=== PATIENT | female | born 1980 | race African-American/Black ===

== ENCOUNTER 2018-10-14 08:28 | Outpatient (CLI) | payer OTHER ==
[2018-10-14] MEDS ORDERED: NORMAL SALINE 250 ML IV PRN (08:47)
[2018-10-14] MEDS ORDERED: IRON DEXTRAN COMPLEX IV PRN (08:49)
[2018-10-14] MEDS ORDERED: NORMAL SALINE IV PRN (08:49)
[2018-10-14 09:51] VITALS: BP 131/79
== END 2018-10-14 11:24 | disposition home or self-care (01) ==
LOC: II 08:28 → 5TH 08:32 → II 11:24
PROVIDERS: ATTEND Internal Medicine
DX: D50.0 Iron deficiency anemia secondary to blood loss (chronic) (principal); K90.9 Intestinal malabsorption, unspecified
CPT/HCPCS: 96365; 96366; J1750; J7040

== ENCOUNTER 2018-10-21 09:44 | Outpatient (CLI) | payer OTHER ==
[~2018-10-21 09:44] MED LIST: IRON DEXTRAN COMPLEX IV PRN; NORMAL SALINE 250 ML IV PRN; NORMAL SALINE IV PRN
[2018-10-21 10:18] VITALS: BP 126/62
== END 2018-10-21 12:03 | disposition home or self-care (01) ==
LOC: II 09:44 → 5TH 09:50 → II 12:03
PROVIDERS: ATTEND Internal Medicine
PROC: 3E033GC Introduction of Other Therapeutic Substance into Peripheral Vein, Percutaneous Approach (ICD-10-PCS; principal; 2018-10-21)
DX: D50.0 Iron deficiency anemia secondary to blood loss (chronic) (principal); K90.9 Intestinal malabsorption, unspecified
CPT/HCPCS: 96367; J1750; J7050; 96365; 96366

== ENCOUNTER 2018-10-28 08:42 | Outpatient (CLI) | payer OTHER ==
[2018-10-28] MEDS ORDERED: NORMAL SALINE 250 ML IV PRN (08:52)
[2018-10-28] MEDS ORDERED: IRON DEXTRAN COMPLEX IV PRN (08:57)
[2018-10-28] MEDS ORDERED: NORMAL SALINE IV PRN (08:57)
[2018-10-28 09:05] VITALS: BP 129/72
== END 2018-10-28 11:15 | disposition home or self-care (01) ==
LOC: II 08:42 → 5TH 09:00 → II 11:15
PROVIDERS: ATTEND Internal Medicine
PROC: 3E033GC Introduction of Other Therapeutic Substance into Peripheral Vein, Percutaneous Approach (ICD-10-PCS; principal; 2018-10-28)
DX: D50.0 Iron deficiency anemia secondary to blood loss (chronic) (principal); K90.9 Intestinal malabsorption, unspecified
CPT/HCPCS: 96365; 96366; J1750; J7050

== ENCOUNTER 2019-03-09 09:11 | Outpatient (CLI) | payer OTHER ==
[~2019-03-09 09:11] MED LIST changes: +FERUMOXYTOL (NON-ESRD) 510 MG/NS 100 ML IV PRN; -IRON DEXTRAN COMPLEX IV PRN; -NORMAL SALINE IV PRN
[2019-03-09 11:20] VITALS: BP 114/60
== END 2019-03-09 11:21 | disposition home or self-care (01) ==
LOC: II 09:11 → 5TH 09:40 → II 11:21
PROVIDERS: ATTEND Internal Medicine
PROC: 3E033GC Introduction of Other Therapeutic Substance into Peripheral Vein, Percutaneous Approach (ICD-10-PCS; principal; 2019-03-09)
DX: D50.9 Iron deficiency anemia, unspecified (principal); K90.9 Intestinal malabsorption, unspecified
CPT/HCPCS: 96365; Q0138; J7050

== ENCOUNTER 2019-03-23 12:27 | Outpatient (CLI) | payer OTHER ==
[2019-03-23 12:46] VITALS: BP 112/61
== END 2019-03-23 13:48 | disposition home or self-care (01) ==
LOC: II 12:27 → 5TH 12:34 → II 13:48
PROVIDERS: ATTEND Internal Medicine
PROC: 3E033GC Introduction of Other Therapeutic Substance into Peripheral Vein, Percutaneous Approach (ICD-10-PCS; principal; 2019-03-23)
DX: D50.9 Iron deficiency anemia, unspecified (principal); K90.9 Intestinal malabsorption, unspecified
CPT/HCPCS: 96365; Q0138; J7050

== ENCOUNTER 2019-07-06 13:41 | Outpatient (CLI) | payer OTHER ==
[2019-07-06 14:09] VITALS: BP 138/74
== END 2019-07-06 14:42 | disposition home or self-care (01) ==
LOC: II 13:41 → 5TH 13:52 → II 14:42
PROVIDERS: ATTEND Internal Medicine
DX: D50.9 Iron deficiency anemia, unspecified (principal); K90.9 Intestinal malabsorption, unspecified
CPT/HCPCS: 96365; Q0138; J7050

== ENCOUNTER 2019-07-13 13:45 | Outpatient (CLI) | payer OTHER ==
[2019-07-13 14:16] VITALS: BP 115/66
== END 2019-07-13 15:32 | disposition home or self-care (01) ==
LOC: II 13:45 → 5TH 14:02 → II 15:32
PROVIDERS: ATTEND Internal Medicine
DX: D50.9 Iron deficiency anemia, unspecified (principal); K90.9 Intestinal malabsorption, unspecified
CPT/HCPCS: 96365; Q0138; J7050

== ENCOUNTER 2019-09-01 09:57 | Outpatient (CLI) | payer OTHER ==
[2019-09-01 10:51] VITALS: BP 119/70
== END 2019-09-01 10:55 | disposition home or self-care (01) ==
LOC: II 09:57 → 5TH 10:50 → II 10:55
PROVIDERS: ATTEND Internal Medicine
DX: D50.9 Iron deficiency anemia, unspecified (principal); K90.9 Intestinal malabsorption, unspecified
CPT/HCPCS: 96365; Q0138; J7050

== ENCOUNTER 2020-02-01 13:19 | Emergency (ER) | payer OTHER, MEDICAID ==
--- NOTE | 2020-02-01 15:03 | ER Document Report ---
ED Medical Screen (RME) - General Chief Complaint: Vaginal Bleeding Stated Complaint: VAGINAL BLEEDING Time Seen by Provider: 02/01/20 14:47 Mode of Arrival: Ambulatory Information source: Patient Notes: Patient is a 39-year-old female comes emergency room with a extended history of anemia. Patient states that back on January 09 she started her last menstrual period that she knows about. Was normal in appearance lasted a few days and went away then she started having spotting for a couple of days and then heavy bleeding again. Since that point time patient has had heavy menstrual bleeding. She states she is going through a bag of the thick pads every 2 days. She also states that she has contacted her [employer]DER which is Dr. Roberto and she is also working with Dr. Kiser because of a history of anemia. Patient states that she has a GI specialist as well as other specialist down to [place] were trying to figure out her anemia but she has never had bleeding vaginally like this be fore. When she originally saw Dr. Roberto he placed her on medroxyprogesterone 10 mg daily. Patient states she took it for several days did not seem to be working and her periods seem to get heavier. She recontacted them and was told to increase it to 30 mg a day. Patient states that she was not wanting to increase that much but she did anyway and it has slowed it down but she is still having several pads a day. She is recently saw Dr. Kiser and had blood work done and she informs me she went from an 11 on her hemoglobin to 9. Patient also states that she has been told she has also been diagnosed von Willebrand's blood disorder. Patient is a well-nourished well-developed 3-year-old female no apparent distress on examination today. Cardiac: Regular rate and rhythm no murmurs auscultated. Lungs: Bilateral breath sounds breath sounds decreased throughout no rhonchi rales or wheeze heard. Abdomen: Bowel sounds present all 4 quads nontender to palpation. Palpation of the suprapubic area does show some mild tenderness. I have greeted and performed a rapid initial assessment of this patient. A comprehensive ED assessment and evaluation of the patient, analysis of test results and completion of the medical decision making process will be conducted by additional ED providers. Dictation of this chart was performed using voice recognition software; therefore, there may be some unintended grammatical errors. TRAVEL OUTSIDE OF THE [place] IN LAST 30 DAYS: No - Related Data Allergies/Adverse Reactions: morphine Allergy (Unknown, Verified 11/17/13 15:21) Past Medical History - Social History Chew tobacco use (# tins/day): No Frequency of alcohol use: None Drug Abuse: None Psychiatric Medical History: Denies: Hx Depression Physical Exam - Vital signs Vitals: Temp 98.1 F 02/01/20 13:19 Course - Vital Signs Vital signs: Temp Pulse Resp BP Pulse Ox 98.1 F 95 20 136/72 H 100 02/01/20 13:49 02/01/20 13:49 02/01/20 13:49 02/01/20 13:49 02/01/20 13:49
[2020-02-01 15:36] LABS: ABSOLUTE EOSINOPHILS # (AUTO) 0.1 10^3/uL (0.0-0.6); ABSOLUTE LYMPHOCYTES (AUTO) 1.5 10^3/uL (0.5-4.7); ABSOLUTE MONOCYTES (AUTO) 0.5 10^3/uL (0.1-1.4); ABSOLUTE NEUT (AUTO) 2.4 10^3/uL (1.7-8.2); BASOPHILS % (AUTO) 0.5 % (0-2); EOSINOPHILS % (AUTO) 1.6 % (0-6); HEMATOCRIT 29.5 % (36.0-47.0); HEMOGLOBIN 9.4 g/dL (12.0-15.5); LYMPHOCYTES % (AUTO) 33.1 % (13-45); MEAN CORPUSCULAR HEMOGLOBIN 25.8 pg (27.0-33.4); MEAN CORPUSCULAR VOLUME 81 fl (80-97); MONOCYTES % (AUTO) 10.5 % (3-13); PLATELET COUNT 341 10^3/uL (150-450); RED BLOOD COUNT 3.66 10^6/uL (3.72-5.28); SEGMENTED NEUTROPHILS % (AUTO) 54.3 % (42-78); TOTAL CELLS COUNTED % (AUTO) 100 %; WHITE BLOOD COUNT 4.5 10^3/uL (4.0-10.5)
[2020-02-01 15:59] LABS: BILIRUBIN,URINE NEGATIVE (NEGATIVE); GLUCOSE, URINE NEGATIVE (NEGATIVE); KETONES,URINE NEGATIVE (NEGATIVE); LEUKOCYTE ESTERASE,URINE NEGATIVE (NEGATIVE); NITRITE,URINE NEGATIVE (NEGATIVE); PROTEIN,URINE 100 mg/dL (NEGATIVE)
[2020-02-01 16:01] LABS: APPEARANCE,URINE TURBID; COLOR,URINE RED
[2020-02-01 16:05] LABS: ALBUMIN 4.1 g/dL (3.5-5.0); ALKALINE PHOSPHATASE 68 U/L (38-126); ANION GAP 9 (5-19); ASPARTATE AMINO TRANSFERASE 19 U/L (14-36); BILIRUBIN,TOTAL 0.2 mg/dL (0.2-1.3); BLOOD UREA NITROGEN 12 mg/dL (7-20); CALCIUM 9.3 mg/dL (8.4-10.2); CARBON DIOXIDE 27 mmol/L (22-30); CHLORIDE 105 mmol/L (98-107); GLUCOSE 123 mg/dL (75-110); POTASSIUM 4.9 mmol/L (3.6-5.0); TOTAL PROTEIN 7.5 g/dL (6.3-8.2)
[2020-02-01 16:11] LABS: INTERNATIONAL RATION (INR) 0.88; PROTHROMBIN TIME 12.2 SEC (11.4-15.4)
[2020-02-01 16:19] LABS: PARTIAL THROMBOPLASTIN TIME 25.2 SEC (23.5-35.8)
--- NOTE | 2020-02-01 17:03 | RADIOLOGY REPORT (SQ) ---
EXAM DESCRIPTION: U/S NON OB PEL TV W/DOPPLER IMAGES COMPLETED DATE/TIME: 02/01/2020 4:30 pm REASON FOR STUDY: pelvic pain COMPARISON: None. TECHNIQUE: Dynamic and static grayscale images acquired of the pelvis via transvaginal approach and recorded on PACS. Additional selected color Doppler and spectral images recorded. LIMITATIONS: None. FINDINGS: UTERUS: Enlarged demonstrating coarsened echotexture. There appears to be a 2.5 x 2.3 x 2 .0 cm subserosal versus intramural fibroid involving the anterior lower uterine segment. No submucos al fibroids are demonstrated. ENDOMETRIAL STRIPE: No focal or generalized thickening. No masses. CERVIX: No nabothian cysts. RIGHT OVARY AND DOPPLER: Ovary not visualized. LEFT OVARY AND DOPPLER: Ovary not visualized. FREE FLUID: None noted. OTHER: No other significant finding. MEASUREMENTS: UTERUS: 12.2 x 6.8 x 8.1 cm ENDOMETRIAL STRIPE: 1.0 cm RIGHT OVARY: Not visualized. LEFT OVARY: Not visualized. IMPRESSION: 2.5 x 2.3 x 2.0 cm anterior uterine body fibroid which does not approximate the endometr ial echo complex. Enlarged, heterogeneous appearing uterus may represent an element of adenomyosis. The ovaries are not visualized on today's examination. TECHNICAL DOCUMENTATION: JOB ID: [id number] 2010 [employer]- All Rights Reserved Reading location - IP/workstation name: [email or web address]
--- NOTE | 2020-02-01 19:03 | ER Document Report ---
ED General - General Chief Complaint: Vaginal Bleeding Stated Complaint: VAGINAL BLEEDING Time Seen by Provider: 02/01/20 14:47 Mode of Arrival: Ambulatory Information source: Patient Notes: Patient is a 39-year-old female presenting to the emergency department chief complaint of dysfunctional uterine bleeding. Patient states her last normal period began on 09 January and has continued until present. Patient states that she is under the care of several physicians in regards to this bleeding and frequent anemia. Patient states that she has had a prior history of von Willebrand's disease. Patient denies travel history trauma history sick contacts bad food exposure. TRAVEL OUTSIDE OF THE [place] IN LAST 30 DAYS: No - HPI Onset: Other - January 09 Onset/Duration: Persistent Quality of pain: Achy Severity: Mild Pain Level: 1 Associated symptoms: None Exacerbated by: Denies Relieved by: Denies Similar symptoms previously: Yes Recently seen / treated by doctor: Yes - Related Data Allergies/Adverse Reactions: morphine Allergy (Unknown, Verified 11/17/13 15:21) Past Medical History - General Information source: Patient - Social History Smoking Status: Unknown if Ever Smoked Chew tobacco use (# tins/day): No Frequency of alcohol use: None Drug Abuse: None Lives with: Family Family History: Reviewed & Not Pertinent Patient has suicidal ideation: No Patient has homicidal ideation: No Renal/ Medical History: Reports: Other - Dysfunctional uterine bleeding Psychiatric Medical History: Denies: Hx Depression - Immunizations Hx Pneumococcal Vaccination: 06/14/13 Review of Systems - Review of Systems Notes: REVIEW OF SYSTEMS: CONSTITUTIONAL : Denies fever, chills, or sweats. Denies recent illness. EENT: Denies eye, ear, throat, or mouth pain or symptoms. Denies nasal or sinus congestion. CARDIOVASCULAR: Denies chest pain. RESPIRATORY: Denies cough, cold, or chest congestion. Denies shortness of breath, difficulty breathing, or wheezing. GASTROINTESTINAL: Denies abdominal pain. Denies nausea, vomiting, or diarrhea. Denies constipation. GENITOURINARY: Per HPI MUSCULOSKELETAL: Denies neck or back pain or joint pain or swelling. SKIN: Denies rash or skin lesions. HEMATOLOGIC : Denies easy bruising or bleeding. NEUROLOGICAL: Denies altered mental status or loss of consciousness. Denies headache. Denies weakness or paralysis or loss of use of either side. Denies problems with gait or speech. Denies sensory or motor loss. PSYCHIATRIC: Denies suicidal or homicidal ideations 10 Systems are negative unless otherwise specified above Constitutional: No symptoms reported EENT: No symptoms reported Cardiovascular: No symptoms reported Respiratory: No symptoms reported Gastrointestinal: No symptoms reported Genitourinary: No symptoms reported Female Genitourinary: No symptoms reported Musculoskeletal: No symptoms reported Skin: No symptoms reported Hematologic/Lymphatic: No symptoms reported Neurological/Psychological: No symptoms reported Physical Exam - Vital signs Vitals: Temp 98.1 F 02/01/20 13:19 - Notes Notes: PHYSICAL EXAMINATION: GENERAL: Well-appearing, well-nourished and in no acute distress. HEAD: Atraumatic, normocephalic. EYES: Pupils equal round and reactive to light, extraocular movements intact, sclera anicteric, conjunctiva are normal. ENT: nares patent, oropharynx clear without exudates. Moist mucous membranes. NECK: Normal range of motion, supple without lymphadenopathy, no appreciable JVD LUNGS: Lungs clear to auscultation bilaterally and equal. No wheezes rales or rhonchi. HEART: Regular rate and rhythm without murmurs ABDOMEN: Soft, nontender, normal bowel sounds. No guarding, no rebound. No masses appreciated. EXTREMITIES: Active full range of motion, no pitting or edema. No cyanosis. 2+ pulses x4 NEUROLOGICAL: No focal neurological deficits. Moves all extremities spontaneously and on command. SKIN: Warm, Dry, and intact. Normal turgor, no rashes or lesions noted. Course - Re-evaluation Re-evalutation: 02/01/20 19:04 I have reviewed the patient's laboratory and radiologic results I spoke with Dr. Martins MED SURG RN on-call who requests that the patient follow-up with his office tomorrow. Patient is currently taking medroxyprogesterone as scheduled. Patient is agreeable with follow-up in the morning and stable at time of dischar ge. - Vital Signs Vital signs: Temp Pulse Resp BP Pulse Ox 98.2 F 76 18 132/76 H 98 02/01/20 18:35 02/01/20 18:35 02/01/20 18:35 02/01/20 18:35 02/01/20 18:35 - Laboratory Result Diagrams: 02/01/20 15:05 02/01/20 15:05 Laboratory results interpreted by me: 02/01/20 02/01/20 02/01/20 15:05 15:05 15:05 RBC 3.66 L Hgb 9.4 L Hct 29.5 L MCH 25.8 L RDW 16.0 H Glucose 123 H Urine Protein 100 H Urine Blood LARGE H Urine Urobilinogen 2.0 H - Diagnostic Test Radiology reviewed: Reports reviewed Discharge - Discharge Clinical Impression: Dysfunctional uterine bleeding Anemia Qualifiers: Anemia type: iron deficiency Iron deficiency anemia type: chronic blood loss Qualified Code(s): D50.0 - Iron deficiency anemia secondary to blood loss (chronic) Uterine fibroid Qualifiers: Uterine leiomyoma location: unspecified location Qualified Code(s): D25.9 - Leiomyoma of uterus, unspecified Condition: Stable Disposition: HOME, SELF-CARE Additional Instructions: Dysfunctional Uterine Bleeding You're having an abnormal pattern of bleeding from the uterus. We call this dysfunctional uterine bleeding. It is most often caused by a hormone imbalance. Most often this is temporary and no cause is found. There's no evidence of , tumors, or infection as a cause. Dysfunctional uterine bleeding is especially common at times when the no rmal menstrual cycle is disturbed -- whether by recent , use of control pills or hormones, or impending menopause. Some medical problems lead to dysfunctional bleeding, such as obesity or being very underweight, stress, or thyroid problems. In many cases, the menstrual cycle will return to normal without any treatment. Where the bleeding is significant, high-dose estrogen will usually stop the bleeding within a day of two. A cycle or two of hormones ( control pills) can help restore the uterus to normal. In some patients where bleeding is severe or resistant to treatment, a D&C is required. A endometrial biopsy (a sample of the inside of the uterus) may be cam mmended for some older women. This would be done by a gynecology specialist. Treatment for anemia may be required if bleeding is severe. You should rest and avoid intercourse until the bleeding is controlled. Call the doctor or return for re-examination if you feel faint, have increasing pain, or have a major increase in the amount of bleeding. Fibroids Fibroids are benign growths in the uterus. They can cause enlargement of the uterus, irregular bleeding, sever bleeding with periods, and abdominal pain. Anemia may result if periods are heavy. Fibroids tend to grow until menopause, then slowly shrink. If fibroids cause severe symptoms, they can be treated surgically. Call or return if vaginal bleeding or pain becomes severe. Call Dr. Martins's office tomorrow morning for an appointment per his recommendation. Referrals: CAR MARTINS MD [ACTIVE STAFF] - Follow up as needed
[2020-02-01 19:13] VITALS: BP 131/78
== END 2020-02-01 19:12 | disposition home or self-care (01) ==
LOC: ER 13:19
DX: N93.8 Other specified abnormal uterine and vaginal bleeding (principal); D50.0 Iron deficiency anemia secondary to blood loss (chronic); D25.9 Leiomyoma of uterus, unspecified; D68.0 Von Willebrand disease; Z88.8 Allergy status to other drugs, medicaments and biological substances
CPT/HCPCS: 36415; 76830; 80053; 81001; 84702; 85025; 85610; 85730; 93976; 99284

== ENCOUNTER 2020-02-07 08:11 | Outpatient (CLI) | payer OTHER, MEDICAID ==
[2020-02-07] MEDS ORDERED: FERUMOXYTOL (NON-ESRD) 510 MG/NS 100 ML IV PRN ×2 (08:18)
[2020-02-07] MEDS ORDERED: NORMAL SALINE 250 ML IV PRN (08:19)
[2020-02-07 08:30] VITALS: BP 121/66
== END 2020-02-07 09:15 | disposition home or self-care (01) ==
LOC: II 08:11 → 5TH 08:14 → II 09:15
PROVIDERS: ATTEND Internal Medicine
DX: D50.9 Iron deficiency anemia, unspecified (principal); K90.9 Intestinal malabsorption, unspecified
CPT/HCPCS: 96365; Q0138; J7050

== ENCOUNTER 2020-02-14 08:50 | Outpatient (CLI) | payer OTHER, MEDICAID ==
[~2020-02-14 08:50] MED LIST changes: -FERUMOXYTOL (NON-ESRD) 510 MG/NS 100 ML IV PRN; +FERUMOXYTOL 510 MG in NORMAL SALINE 100 ML IV PRN
[2020-02-14 09:56] VITALS: BP 129/79
== END 2020-02-14 10:35 | disposition home or self-care (01) ==
LOC: II 08:50 → 5TH 08:51 → II 10:35
PROVIDERS: ATTEND Internal Medicine
DX: D50.9 Iron deficiency anemia, unspecified (principal); K90.9 Intestinal malabsorption, unspecified
CPT/HCPCS: 96365; Q0138; J7050

== ENCOUNTER 2020-02-29 05:46 | Day surgery (SDC) | payer OTHER, MEDICAID ==
[2020-02-26 12:15] LABS: HEMATOCRIT 33.5 % (36.0-47.0); HEMOGLOBIN 10.8 g/dL (12.0-15.5); MEAN CORPUSCULAR HEMOGLOBIN 26.7 pg (27.0-33.4); MEAN CORPUSCULAR HGB CONC 32.3 g/dL (32.0-36.0); MEAN CORPUSCULAR VOLUME 83 fl (80-97); PLATELET COUNT 290 10^3/uL (150-450); RED BLOOD COUNT 4.05 10^6/uL (3.72-5.28); RED CELL DISTRIBUTION WIDTH 18.3 % (11.5-14.0); WHITE BLOOD COUNT 3.3 10^3/uL (4.0-10.5)
[2020-02-26 12:24] LABS: APPEARANCE,URINE SLIGHTLY-CLOUDY; BILIRUBIN,URINE NEGATIVE (NEGATIVE); COLOR,URINE YELLOW; GLUCOSE, URINE NEGATIVE (NEGATIVE); KETONES,URINE NEGATIVE (NEGATIVE); LEUKOCYTE ESTERASE,URINE NEGATIVE (NEGATIVE); NITRITE,URINE NEGATIVE (NEGATIVE); PROTEIN,URINE 30 mg/dL (NEGATIVE); URINE SPECIFIC GRAVITY 1.017; UROBILINOGEN,URINE NEGATIVE mg/dL (<2.0)
[2020-02-26 12:37] LABS: ALBUMIN 4.3 g/dL (3.5-5.0); ALKALINE PHOSPHATASE 83 U/L (38-126); ANION GAP 9 (5-19); ASPARTATE AMINO TRANSFERASE 20 U/L (14-36); BILIRUBIN,DIRECT 0.3 mg/dL (0.0-0.4); BILIRUBIN,TOTAL 0.4 mg/dL (0.2-1.3); BLOOD UREA NITROGEN 7 mg/dL (7-20); CALCIUM 9.2 mg/dL (8.4-10.2); CARBON DIOXIDE 28 mmol/L (22-30); CHLORIDE 102 mmol/L (98-107); GLUCOSE 94 mg/dL (75-110); POTASSIUM 4.4 mmol/L (3.6-5.0); TOTAL PROTEIN 7.7 g/dL (6.3-8.2)
--- NOTE | 2020-02-26 17:26 | EKG REPORT ---
SEVERITY:- NORMAL ECG - SINUS RHYTHM : Confirmed by: Hans Uribe 26-Feb-2020 17:25:58
[~2020-02-29 05:46] MED LIST changes: +CEFAZOLIN 1 GM/D5W RTU 1 GM/50 ML RTUPB IV ONE; +CEFAZOLIN 1 GM/D5W RTU 1 GM/50 ML RTUPB IV PRN; -FERUMOXYTOL 510 MG in NORMAL SALINE 100 ML IV PRN; +LACTATED RINGERS 1000 ML IV PRN; +LIDOCAINE 0.5% INJ-PF (5 MG/ML) 50 ML SDV SUBCUT PRN; -NORMAL SALINE 250 ML IV PRN; +RINGERS SOLUTION,LACTATED 1,000 ML IV PRN
[2020-02-29] MEDS ORDERED: EPHEDRINE SULFATE INJ 50 MG/1 ML AMPULE ONE (06:45)
[2020-02-29] MEDS ORDERED: KETAMINE HCL INJ 500 MG/10 ML VIAL ONE (06:45)
[2020-02-29] MEDS ORDERED: MIDAZOLAM 2 MG/2 ML INJ ONE (06:45)
[2020-02-29] MEDS ORDERED: FENTANYL CITRATE INJ/PF 250 MCG/5 ML AMPULE ONE (06:45)
[2020-02-29] MEDS ORDERED: PROPOFOL INJ 200 MG/20 ML VIAL IV ONE (06:46)
[2020-02-29] MEDS ORDERED: CEFAZOLIN INJ 1 GM VIAL ONE (08:25)
[2020-02-29] MEDS ORDERED: FENTANYL CITRATE INJ/PF 100 MCG/2 ML AMPUL IV PRN ×3 (09:30)
[2020-02-29] MEDS ORDERED: MEPERIDINE HCL/PF INJ 25 MG/1 ML DISP.SYRIN IV PRN (09:30)
[2020-02-29] MEDS ORDERED: PROMETHAZINE HCL INJ 25 MG/1 ML VIAL IV PRN ×3 (09:30→11:46)
[2020-02-29] MEDS ORDERED: DIPHENHYDRAMINE HCL 50 MG/ML VIAL IV PRN (09:30)
[2020-02-29] MEDS ORDERED: TRANEXAMIC ACID INJ/PF 1,000 MG/10 ML SDV ONE (10:03)
[2020-02-29] MEDS ORDERED: HYDROMORPHONE HCL INJ/PF 2 MG/ML AMPULE ONE ×2 (10:26→11:58)
[2020-02-29] MEDS ORDERED: ONDANSETRON HCL INJ/PF 4 MG/2 ML SDV ONE (10:42)
[2020-02-29] MEDS ORDERED: GLYCOPYRROLATE 1 MG/5 ML VIAL ONE (10:42)
[2020-02-29] MEDS ORDERED: LIDOCAINE 2% INJ-PF (20 MG/ML) 2 ML AMPUL ONE (10:42)
[2020-02-29] MEDS ORDERED: SUCCINYLCHOLINE CHLORIDE INJ 200 MG/10 ML VIAL ONE (10:42)
[2020-02-29] MEDS ORDERED: DEXAMETHASONE SOD PHOSPHATE INJ 4 MG/1 ML VIAL ONE (10:42)
[2020-02-29] MEDS ORDERED: ROCURONIUM BROMIDE INJ 50 MG/5 ML VIAL IV ONE (10:42)
[2020-02-29] MEDS ORDERED: NEOSTIGMINE METHYLSULFATE 10 MG/10 ML VIAL ONE (10:42)
[2020-02-29] MEDS ORDERED: METOCLOPRAMIDE HCL INJ/PF 10 MG/2 ML SDV ONE (10:42)
[2020-02-29] MEDS ORDERED: MEASLES,MUMPS&RUBELLA VACC/PF 0.5 ML VIAL SUBCUT PRN (11:46)
[2020-02-29] MEDS ORDERED: ACETAMINOPHEN 325 MG TABLET PO PRN (11:46)
[2020-02-29] MEDS ORDERED: RINGERS SOLUTION,LACTATED 1,000 ML IV PRN (11:46)
[2020-02-29] MEDS ORDERED: OXYCODONE-ACETAMINOPHEN 5-325 MG TABLET PO PRN (11:46)
[2020-02-29] MEDS ORDERED: DIPH/PERTUSS(ACELL)/TETANUS VAC/PF 0.5 ML SYR (>=10YO) IM PRN (11:46)
[2020-02-29] MEDS ORDERED: HYDROMORPHONE HCL INJ/PF 2 MG/ML AMPULE IV PRN (11:46)
[2020-02-29] MEDS ORDERED: ACETAMINOPHEN 1,000 MG/100 ML RTUPB IV PRN (11:46)
[2020-02-29] MEDS: HYDROMORPHONE HCL INJ/PF 2 MG/ML AMPULE IV PRN ×3 (12:00→12:10)
--- NOTE | 2020-02-29 12:02 | Operative Report ---
Operative Report DATE OF SURGERY: 02/29/20 PREOPERATIVE DIAGNOSIS: abnormal uterine bleeding, pelvic pain, leiomyoma, pelv ic adhesions, anemia POSTOPERATIVE DIAGNOSIS: Same OPERATION: Robotic assisted total laparoscopic hysterectomy with bilateral salpingectomy and lysis of adhesions SURGEON: KARUNA CORONEL ANESTHESIA: GA TISSUE REMOVED OR ALTERED: Uterus cervix with bilateral fallopian tubes COMPLICATIONS: None ESTIMATED BLOOD LOSS: 1000 cc INTRAOPERATIVE FINDINGS: 16-week size uterus with multiple fibroids, normal ovaries normal fallopian tubes, multiple omental adhesions to the anterior abdominal wall obscuring the vision visualization of the uterus and bladder, dense adhesions of the bladder to the lower uterine segment PROCEDURE: Patient was taken to the operating room prepared and draped in normal sterile fashion in dorsolithotomy position. Under sterile conditions a Melgar catheter was placed to gravity. Speculum was placed into the vagina and the cervix was grasped on the anterior lip with a single-tooth tenaculum. The cervix was then dilated to accommodate a medium V care uterine manipulator. Manipulate it was placed gloves were changed and attention was turned to the upper portion of the case. A 2-1/2 cm umbilical skin incision was made 11 blade and this was carried through to the underlying layer of fascia with the same 11 blade. It was grasped to Clare's acted with [place]'s. Peritoneal cavity was entered bluntly. A GelPort was placed in a normal fashion the camera port and air seal in the appropriate locations. Nicole was then inflated with approximately 2 L of CO2 gas. The camera was then introduced into the peritoneal cavity through the camera port an d the patient was placed in steep Trendelenburg. The above findings were noted. Under direct visualization two 5 mm ports were placed approximately 10 cm on either side of the umbilicus. Atraumatic grasper was inserted and attempt to eliminate the adhesions with blunt dissection proved unsuccessful and it was decided to do the rest of the adhesions with the robot. the robot was then docked with the vessel sealer placed on the patient's left and the monopolar scissors placed placed on the patient's right. I then unscrubbed and set at the robotic console beginning with the omental adhesions these were dissected from the anterior abdominal wall to improve visualization using both the monopolar scissors and the vessel sealer assuring that there was no bowel within the omental adhesions . Approximately 25 minutes were spent on this portion of the case and once these adhesions were cleared the hysterectomy portion was begun . Getting with the left adnexa the fallopian tube was transected from the uterus using the vessel sealer and monopolar scissors as needed. The fallopian tube was then removed through the assistance port. The ovarian ligament was then transected using the vessel sealer. The uterine artery was skeletonized using blunt dissection and ligated using the vessel sealer down to the level of the external cervical os. The bladder flap was then begun using monopolar scissors and blunt dissection. V care cup was not able to be located through the mucosa at this time therefore we began on the other side of the adnexa on the right. attention was then turned to the right adnexa where the fallopian tube was transected in a similar fashion. The utero-ovarian ligament was transected using the vessel sealer. The Uterine artery was then transected using the vessel karlie r and skeletonized using sharp and blunt dissection. The vessel sealer was again used to completely transect the uterine artery down to the level of the external cervical os. The bladder flap was completed using similar sharp and blunt dissection. This point we felt that we could locate the V cup through the mucosa and the bladder flap was created on the lower uterine segment following the contours of the V cup through the mucosa and dissecting this over the V care cup. once the bladder was felt to be adequately away from the lower uterine segment, the colpotomy was begun on the anterior aspect of the cervix following the outline of the V care cup mucosa. There were some vessels that did start to bleed during this portion of the case and we stopped with the colpotomy and address these with the vessel sealer monopolar scissors for coagulation . Once hemostasis was obtained the colpotomy was completed following the V care cup. the cup was followed in a circumferential fashion completely around the cervix till the specimen was completely freed. The specimen was then removed through the vaginal defect. The instruments were then changed to a Anatoly needle mobile lounge driver or operator and pro-grasp. AV lock needle was introduced through the assistance port. The lock needle was used to close the vaginal cuff and hemostasis. The needle was then removed through the assistance port. The peritoneal cavity was carefully inspected the ureters were noted to both be peristalsing and there was no signs of hydroureter. The robot was then undocked. The fascia was closed at the umbilical skin incision seen 0 Vicryl 3 skin incisions were closed using 4-0 Vicryl. Sponge lap and needle counts were correct x2 and the patient was taken to recovery in stable condition.
[2020-02-29] MEDS ORDERED: LIDOCAINE 2% INJ-PF (20 MG/ML) 10 ML AMPUL ONE (12:17)
[2020-02-29] MEDS ORDERED: ROPIVACAINE HCL 0.5% INJ/PF (5 MG/1 ML) 30 ML SDV ONE (12:17)
[2020-02-29] MEDS: IBUPROFEN 800 MG TABLET PO SCH ×2 (13:52→18:34)
[2020-02-29] MEDS: KETOROLAC TROMETHAMINE INJ/PF 30 MG/1 ML SDV IV SCH ×2 (14:17→21:36)
[2020-02-29] MEDS: DOCUSATE SODIUM 100 MG CAPSULE PO SCH (18:31)
[2020-02-29] MEDS: SIMETHICONE 80 MG TAB.CHEW PO PRN (21:44)
[2020-03-01] MEDS: IBUPROFEN 800 MG TABLET PO SCH ×5 (02:01→23:18)
[2020-03-01] MEDS: OXYCODONE-ACETAMINOPHEN 5-325 MG TABLET PO PRN ×3 (04:32→18:28)
[2020-03-01] MEDS: SIMETHICONE 80 MG TAB.CHEW PO PRN ×2 (07:07→18:29)
[2020-03-01] MEDS: KETOROLAC TROMETHAMINE INJ/PF 30 MG/1 ML SDV IV SCH ×2 (07:19→13:04)
[2020-03-01 08:19] LABS: HEMATOCRIT 24.7 % (36.0-47.0); HEMOGLOBIN 8.1 g/dL (12.0-15.5); MEAN CORPUSCULAR HEMOGLOBIN 27.1 pg (27.0-33.4); MEAN CORPUSCULAR HGB CONC 32.9 g/dL (32.0-36.0); MEAN CORPUSCULAR VOLUME 82 fl (80-97); PLATELET COUNT 278 10^3/uL (150-450); RED CELL DISTRIBUTION WIDTH 17.7 % (11.5-14.0); WHITE BLOOD COUNT 4.9 10^3/uL (4.0-10.5)
[2020-03-01] MEDS: DOCUSATE SODIUM 100 MG CAPSULE PO SCH ×2 (09:49→18:28)
[2020-03-02] MEDS: IBUPROFEN 800 MG TABLET PO SCH ×2 (06:12→12:02)
--- NOTE | 2020-03-02 07:54 | PDOC DISCHARGE SUMMARY ---
Impression - Admit/DC Date/PCP Admission Date/Primary Care Provider: KRISTOFER MACHUCA PA-C Discharge Date: 03/02/20 - Discharge Diagnosis (1) Abnormal uterine bleeding Is this a current diagnosis for this admission?: Yes (2) Anemia Is this a current diagnosis for this admission?: Yes (3) Leiomyoma uteri Is this a current diagnosis for this admission?: Yes (4) Pelvic adhesive disease Is this a current diagnosis for this admission?: Yes (5) Pelvic pain Is this a current diagnosis for this admission?: Yes - Assessment Summary: pt underwent an RATLH w/ bilateral salpingectomy and significant lysis of adhesions. Her POD # 1 was marked by increased pain that has resolved now that she has passed flatus and had bowel movement. she is tolerating regular diet and ambulating well. voiding normally. ready for discharge home today. - Additional Information Resuscitation Status: Full Code Discharge Diet: As Tolerated Discharge Activity: Balance Activity w/Rest, No Driving, No Lifting Over 10 Pounds, No Lifting/Push/Pulling, Pelvic Rest, No tub bath Referrals: KARUNA CORONEL MD [ACTIVE STAFF] - 03/15/20 1:30 pm (CALL THE OFFICE OF ANY QUESTIONS OR CONCERNS.) Prescriptions: Oxycodone HCl/Acetaminophen [Percocet 5-325 mg Tablet] 1 tab PO Q4HP PRN #30 tablet PRN Reason: Docusate Sodium [Colace 100 mg Capsule] 100 mg PO BID #60 capsule Ibuprofen [Motrin 800 mg Tablet] 800 mg PO Q6 #60 tablet Simethicone [Mylicon 80 mg Chewable Tablet] 80 mg PO QIDP PRN #60 tab.chew PRN Reason: Home Medications: Albuterol Sulfate [Proair Respiclick] 90 mcg IH PRN PRN 02/26/20 Docusate Sodium [Colace 100 mg Capsule] 100 mg PO BID #60 capsule 03/02/20 Ibuprofen [Motrin 800 mg Tablet] 800 mg PO Q6 #60 tablet 03/02/20 Oxycodone HCl/Acetaminophen [Percocet 5-325 mg Tablet] 1 tab PO Q4HP PRN #30 tablet 03/02/20 Simethicone [Mylicon 80 mg Chewable Tablet] 80 mg PO QIDP PRN #60 tab.chew 03/02/20 History of Present Illiness History of Present Illness: BRANDEN SCHWAB is a 39 year old female Physical Exam - Physical Exam Vital Signs: Temp Pulse Resp BP Pulse Ox 98.1 F 93 18 101/58 L 99 03/02/20 05:34 03/02/20 05:34 03/02/20 05:34 03/02/20 05:34 03/02/20 05:34 Intake & Output 03/01/20 03/02/20 03/03/20 06:59 06:59 06:59 Intake Total 3100 Output Total 1625 Balance 1475 Weight 120.5 kg 119.703 kg Results Laboratory Results: WBC 4.9 10^3/uL (4.0-10.5) 03/01/20 08:07 RBC 3.00 10^6/uL (3.72-5.28) L 03/01/20 08:07 Hgb 8.1 g/dL (12.0-15.5) L 03/01/20 08:07 Hct 24.7 % (36.0-47.0) L 03/01/20 08:07 MCV 82 fl (80-97) 03/01/20 08:07 MCH 27.1 pg (27.0-33.4) 03/01/20 08:07 MCHC 32.9 g/dL (32.0-36.0) 03/01/20 08:07 RDW 17.7 % (11.5-14.0) H 03/01/20 08:07 Plt Count 278 10^3/uL (150-450) 03/01/20 08:07 Sodium 139.2 mmol/L (137-145) 02/26/20 11:15 Potassium 4.4 mmol/L (3.6-5.0) 02/26/20 11:15 Chloride 102 mmol/L (98-107) 02/26/20 11:15 Carbon Dioxide 28 mmol/L (22-30) 02/26/20 11:15 Anion Gap 9 (5-19) 02/26/20 11:15 BUN 7 mg/dL (7-20) 02/26/20 11:15 Creatinine 0.72 mg/dL (0.52-1.25) 02/26/20 11:15 Est GFR ( Amer) > 60 (>60) 02/26/20 11:15 Est GFR (MDRD) Non-Af > 60 (>60) 02/26/20 11:15 Glucose 94 mg/dL (75-110) 02/26/20 11:15 Calcium 9.2 mg/dL (8.4-10.2) 02/26/20 11:15 Total Bilirubin 0.4 mg/dL (0.2-1.3) 02/26/20 11:15 Direct Bilirubin 0.3 mg/dL (0.0-0.4) 02/26/20 11:15 Neonat Total Bilirubin Not Reportable 02/26/20 11:15 Neonat Direct Bilirubin Not Reportable 02/26/20 11:15 Neonat Indirect Bili Not Reportable 02/26/20 11:15 AST 20 U/L (14-36) 02/26/20 11:15 ALT 12 U/L (<35) 02/26/20 11:15 Alkaline Phosphatase 83 U/L (38-126) 02/26/20 11:15 Total Protein 7.7 g/dL (6.3-8.2) 02/26/20 11:15 Albumin 4.3 g/dL (3.5-5.0) 02/26/20 11:15 Urine Color YELLOW 02/26/20 10:55 Urine Appearance SLIGHTLY-CLOUDY 02/26/20 10:55 Urine pH 5.0 (5.0-9.0) 02/26/20 10:55 Ur Specific [place] 1.017 02/26/20 10:55 Urine Protein 30 mg/dL (NEGATIVE) H 02/26/20 10:55 Urine Glucose (UA) NEGATIVE mg/dL (NEGATIVE) 02/26/20 10:55 Urine Ketones NEGATIVE mg/dL (NEGATIVE) 02/26/20 10:55 Urine Blood LARGE (NEGATIVE) H 02/26/20 10:55 Urine Nitrite NEGATIVE (NEGATIVE) 02/26/20 10:55 Urine Bilirubin NEGATIVE (NEGATIVE) 02/26/20 10:55 Urine Urobilinogen NEGATIVE mg/dL (<2.0) 02/26/20 10:55 Ur Leukocyte Esterase NEGATIVE (NEGATIVE) 02/26/20 10:55 Urine WBC (Auto) 2 /HPF 02/26/20 10:55 Urine RBC (Auto) 3 /HPF 02/26/20 10:55 Urine Bacteria (Auto) TRACE /HPF 02/26/20 10:55 Squamous Epi Cells Auto 1 /HPF 02/26/20 10:55 Urine Mucus (Auto) RARE /LPF 02/26/20 10:55 Urine Ascorbic Acid NEGATIVE (NEGATIVE) 02/26/20 10:55 Urine HCG, Qual NEGATIVE (NEGATIVE) 02/29/20 06:15 COVID-19 Source NASOPHARYNGEAL 02/26/20 11:05 COVID-19 (AIDA) NOT DETECTED 02/26/20 11:05 Blood Type O POSITIVE 02/26/20 11:15 Antibody Screen NEGATIVE 02/26/20 11:15 Stroke Is this a Stroke Patient?: No Acute Heart Failure Is this a Heart Failure Patient?: No
[2020-03-02] MEDS: DOCUSATE SODIUM 100 MG CAPSULE PO SCH (09:41)
[2020-03-02 10:54] VITALS: BP 111/60
== END 2020-03-02 14:30 | disposition home or self-care (01) ==
LOC: OROUT 05:46 → 2N 11:15 → OROUT 03-02 14:30
PROVIDERS: ATTEND Obstetrics & Gynecology
DX: N93.9 Abnormal uterine and vaginal bleeding, unspecified (principal); D25.1 Intramural leiomyoma of uterus; D64.9 Anemia, unspecified; R10.2 Pelvic and perineal pain; N73.6 Female pelvic peritoneal adhesions (postinfective); N32.89 Other specified disorders of bladder; N92.6 Irregular menstruation, unspecified; Z03.818 Encounter for observation for suspected exposure to other biological agents ruled out; Z79.899 Other long term (current) drug therapy
CPT/HCPCS: 49329; 58571; S2900; 36415; 80053; 81001; 81025; 840; 85027; 86850; 86900; 86901; 87635; 88307; 93005; 93010; 94799; A4649; C1758; C9803; J0330; J0690; J1100; J1170; J1885; J2250; J2405; J2704; J2710; J2765; J2795; J3010; J3490